=== PATIENT | female | born 1960 | race African-American/Black ===

== ENCOUNTER 2020-09-16 13:55 | Emergency (ER) | payer MEDICARE, OTHER ==
[~2020-09-16] VITALS: Ht 162.6 cm; Wt 136.3 kg
--- NOTE | 2020-09-16 15:03 | RAD ---
EXAM: Right lower extremity venous Doppler sonogram. HISTORY: Pain and swelling. TECHNIQUE: Ronquillo scale and color Doppler sonographic evaluation of the right lower extremity veins wit h spectral waveform analysis was performed. FINDINGS: The calf veins are not well seen due to patient body habitus. There is normal color flow, n ormal compressibility and there are normal spectral waveforms in the common remainder of the lower ex tremity veins. IMPRESSION: No Doppler evidence of lower extremity deep venous thrombosis, with limited evaluation of the calf veins due to body habitus. Electronically signed by: Samara Haney MD (09/16/2020 3:01 PM) [id number]
[2020-09-16] MEDS ORDERED: TRIA15OI TP (15:37)
--- NOTE | 2020-09-16 15:38 | PHYS DOC ---
Past History Additional Past Medical Histor: heart murmur Past Surgical History: Cholecystectomy, , Other Additional Past Surgical Histo: abd hernia repair Alcohol Use: Rarely Adult General Chief Complaint Chief Complaint: LOWER EXTREMITY SWELLING HPI HPI Patient is a 60-year-old female patient presented to the ED today complaining of an area of firmness and swelling behind her right ankle that she noted a week ago. Patient is concerned about DVT. Patient denies any chest pain, shortness of breath, injury. Review of Systems Review of Systems Constitutional: Denies fever or chills [] Eyes: Denies change in visual acuity, redness, or eye pain [] HENT: Denies nasal congestion or sore throat [] Respiratory: Denies cough or shortness of breath [] Cardiovascular: No additional information not addressed in HPI [] GI: Denies abdominal pain, nausea, vomiting, bloody stools or diarrhea [] : Denies dysuria or hematuria [] Musculoskeletal: Denies back pain or joint pain [] Integument: Reports swelling behind the right ankle Neurologic: Denies headache, focal weakness or sensory changes [] All other systems were reviewed and found to be within normal limits, except as documented in this note. Allergies Allergies Allergies Coded Allergies Type Severity Reaction Last Updated Verified Penicillins Allergy Unknown 09/16/20 Yes Physical Exam Physical Exam Constitutional: Well developed, well nourished, no acute distress, non-toxic appearance. [] HENT: Normocephalic, atraumatic, bilateral external ears normal, oropharynx moist, no oral exudates, nose normal. [] Eyes: PERRLA, EOMI, conjunctiva normal, no discharge. [] Neck: Normal range of motion, no tenderness, supple, no stridor. [] Cardiovascular:Heart rate regular rhythm Lungs & Thorax: Bilateral breath sounds clear to auscultation [] Abdomen: Bowel sounds normal, soft, no tenderness, no masses, no pulsatile masses. [] Skin: Above the Achilles tendon there is small barely indurated area roughly 2 x 2 cm that is from, slight erythema over the region, no fluctuance, no warmth, negative Homans' sign to the right lower extremity. Chronic edematous bilateral lower extremities. Back: No tenderness, no CVA tenderness. [] Extremities: No tenderness, no cyanosis, no clubbing, ROM intact, no edema. [] Neurologic: Alert and oriented X 3, normal motor function, normal sensory function, no focal deficits noted. [] Psychologic: Affect normal, judgement normal, mood normal. [] Current Patient Data Vital Signs Vital Signs Date Time Temp Pulse Resp B/P (MAP) Pulse Ox O2 Delivery O2 Flow Rate FiO2 09/16/20 14:11 98.6 63 24 158/62 95 Room Air EKG EKG [] Radiology/Procedures Radiology/Procedures []REASON: RLE swelling PROCEDURE: VENOUS LOWER EXTREMITY RIGHT EXAM: Right lower extremity venous Doppler sonogram. HISTORY: Pain and swelling. TECHNIQUE: Ronquillo scale and color Doppler sonographic evaluation of the right lower extremity veins with spectral waveform analysis was performed. FINDINGS: The calf veins are not well seen due to patient body habitus. There is normal color flow, normal compressibility and there are normal spectral waveforms in the common remainder of the lower extremity veins. IMPRESSION: No Doppler evidence of lower extremity deep venous thrombosis, with limited evaluation of the calf veins due to body habitus. Electronically signed by: Samara Martell MD (09/16/2020 3:01 PM) [id number] DICTATED AND SIGNED BY: SAMARA MARTELL MD DATE: 09/16/20 1500 CC: EMERGENCY,DEPARTMENT; GÉNESIS PASTOR APRN; TSERING DELEON MD ~MTH0 0 Heart Score C/O Chest Pain: N/A Risk Factors: Risk Factors: DM, Current or recent (<one month) smoker, HTN, HLP, family history of CAD, obesity. Risk Scores: Risk Factors: DM, Current or recent (<one month) smoker, HTN, HLP, family history of CAD, obesity. Course & Med Decision Making Course & Med Decision Making Pertinent Labs and Imaging studies reviewed. (See chart for details) This is a 60-year-old female patient presented to the ED today complaining of an area of swelling behind the right ankle that she noted a week ago. The area does not appear infected. This appears to be a possible an insect bite or contusion. Tetanus is up-to-date. Venous Doppler of the right lower extremity is negative. D/c to home f/u with PCP next week Alex Disclaimer Alex Disclaimer This electronic medical record was generated, in whole or in part, using a voice recognition dictation system. Departure Departure: Impression: Primary Impression: Swelling of right lower extremity Disposition: HOME / SELF CARE / HOMELESS Condition: STABLE Referrals: TSERING DELEON MD (PCP) follow up next week Patient Instructions: Edema, [id number] Additional Instructions: Venous Doppler of the right lower extremity is negative for DVT. Consider applying the prescribed medication to the swollen area. Follow-up with your primary care doctor next week. Try to elevate bilateral lower extremities. Consider wearing compression stocking. Scripts Triamcinolone Acetonide (TRIAMCINOLONE ACETONIDE 0.1% OINT) 15 Gm Oint...g. 1 JENNIFER TP BID, #1 EACH Prov: GÉNESIS PASTOR CONTINUITY MANAGER 09/16/20 GÉNESIS PASTOR CONTINUITY MANAGER Sep 16, 2020 15:38
[2020-09-16 15:56] VITALS: BP 110/71
== END 2020-09-16 15:57 | disposition home or self-care (01) ==
LOC: ER 13:55
DX: I82.401 Acute embolism and thrombosis of unspecified deep veins of right lower extremity (principal); Z88.0 Allergy status to penicillin; Z90.49 Acquired absence of other specified parts of digestive tract
CPT/HCPCS: 93971; 99284-25